=== PATIENT | female | born 1975 | race Caucasian/White ===

== ENCOUNTER → 2020-04-07 | Emergency (ER) | payer OTHER ==
[~2020-04-07] VITALS: Ht 170.2 cm; Wt 51.7 kg
[~2020-04-07] MED LIST: ATIVAN0.5 M1 PO; CARAFATE1 GM PO; ZOFRAN ODT4 MG PO; ZOLOFT25 MG PO
--- NOTE | ~2020-04-07 | EMS ---
[address] [address] EMS Patient Care Report Name: ERIK GIBSON Room #: REG SKYLER Bernal#: [id number] Admission: 04/07/20 Attend Phys: Discharge: Date of : 73 Report #: [id number] THIS REPORT FOR: //name// Report Transmitted: 04/08/2020 06:26 EMS Care Summary [facility] MED-ACT Incident [id number] @ 04/07/2020 13:59 Incident Location [address] [place] [address] Patient ERIK GIBSON Female, 45 Years 1975 Patient Address [address] [place] [address] Patient History Anxiety Disorder (Panic Attacks), Patient Allergies Penicillin allergy, Patient Medications Sertraline, Chief Complaint "My stomach hurts" Disposition Transported No Lights/Comfort Dispatch Reason Sick Person Transported To [facility] Narrative 45yof found sitting in position in bathroom, alert and oriented, tachypnic, and reporting 10/10 pain to the center of her abdomen. Pt's [address] [address] EMS Patient Care Report Name: ERIK GIBSON Room #: REG Dolores#: [id number] Admission: 04/07/20 Attend Phys: Discharge: Date of : 73 Report #: [id number] boyfriend reported that "everything was fine" and then pt "screamed and said to call 911." Pt stated she began to have a "knot" in the middle of her stomach around "noon" today when she left work to return home. Pt stated she was nauseated and had a "soft stool," but did not report any blood in bowel. Pt denied any chance of stating she no longer has her "menstrual cycle." Pt stating her pain felt like a "knot," but did not radiate out of the middle of her abdomen. Pt stated she still had her gallbladder and appendix. Pt denied any recent trauma to her abdomen. Pt requested transport to [facility] ER for further evaluation. Pt breathing was extremely rapid and it was noted that pt had the start of carpo-pedal spasms in both of her hands. Pt's breathing was continually coached with minimal success throughout EMS care. Pt was assisted down 1 small flight of stairs to awaiting cot, secured with straps, and moved to ambulance for further assessment/treatment. EKG, ETCO2, and basic vital signs were continually monitored throughout EMS care. Hospital was contacted via [employer] with pt information only. Upon arrival to ER, pt is alert and oriented, vital signs as noted, with no change in complaint/condition. Pt continued to have 10/10 pain noted to her center abdomen. Pt care was transferred to [facility] in ER RM 2 without incident. Initial Vitals @14:14P: 77,R: 50,EtCO2: 8,SpO2: 99, @14:27P: 78,R: 35,EtCO2: 14, @14:15P: 80,R: 50,EtCO2: 9,SpO2: 100, @14:26P: 74,R: 36,EtCO2: 13, @14:08P: 90,R: 50,BP: 103/65,Pain: 10/10,GCS: 15,SpO2: 100,Revised Trauma: 11, @14:28P: 77,R: 35,BP: 119/63,Pain: 10/10,EtCO2: 13,SpO2: 100, Assessments @14:06MENTAL:Person Oriented,Time Oriented,Place Oriented,Event Oriented,SKIN:HEENT:Head/Face: No Abnormalities,LUNG SOUNDS:Left Upper: Guarding,Right Upper: Guarding,Left Lower: Guarding,Right Lower: Guarding,General: No Abnormalities,ABDOMEN:Left Upper: Guarding,Right Upper: Guarding,Left Lower: Guarding,Right Lower: Guarding,General: No Abnormalities,PELVIS//GI:No Abnormalities,EXTREMITIES:Left Arm: No Abnormalities,Right Arm: No Abnormalities,Left Leg: No Abnormalities,Right Leg: No Abnormalities,PULSE:NEURO:No Abnormalities, Impression Abdominal Pain Procedures [facility] [address] [place] [address] EMS Patient Care Report Name: ERIK GIBSON CATALINA Room #: REG Dolores#: [id number] Admission: 04/07/20 Attend Phys: Discharge: Date of : 73 Report #: [id number] @14:06ALS AssessmentResponse: UnchangedSucceeded@14:07Surgical Mask on PatientResponse: Unchanged Timeline 13:57,Call Received 13:57,Psap Call 13:59,Dispatched 14:00,En Route 14:03,On Scene 14:05,At Patient 14:06,ALS Assessment,Response: UnchangedSucceeded, 14:07,Surgical Mask on Patient,Response: Unchanged 14:08,BP: 103/65 M,PULSE: 90,RR: 50 R,SPO2: 100 Ox,ETCO2: ,BG: ,PAIN: 10,GCS: 15, 14:14,BP: / M,PULSE: 77,RR: 50 R,SPO2: 99 Ox,ETCO2: 8 ,BG: ,PAIN: ,GCS: , 14:15,BP: / M,PULSE: 80,RR: 50 R,SPO2: 100 Ox,ETCO2: 9 ,BG: ,PAIN: ,GCS: , 14:18,Depart Scene 14:26,BP: / M,PULSE: 74,RR: 36 R,SPO2: Ox,ETCO2: 13 ,BG: ,PAIN: ,GCS: , 14:27,BP: / M,PULSE: 78,RR: 35 R,SPO2: Ox,ETCO2: 14 ,BG: ,PAIN: ,GCS: , 14:28,BP: 119/63 M,PULSE: 77,RR: 35 R,SPO2: 100 Ox,ETCO2: 13 ,BG: ,PAIN: 10,GCS: , 14:31,At Destination 14:48,Call Closed Disclaimer v1.1 Copyright 2020 [employer] This EMS Care Summary contains data elements from the applicable legal record (which may be displayed differently). It is designed to provide pertinent information for the following purposes: continuity of care, clinical quality, and state data reporting. The complete legal record is available to ED staff and administrators of the receiving hospital in [employer] Patient Tracker. All data is provided "as is."
[2020-04-07 15:17] LABS: ABSOLUTE NEUTROPHILS 10.3 thou/uL (1.4-8.2); BASOPHILS 0.4 % (0.0-2.0); EOSINOPHILS 0.3 % (0.0-3.0); HEMATOCRIT 41.4 % (37.0-47.0); LYMPHOCYTES 9.7 % (24.0-44.0); MCHC 33.8 g/dL (28.0-37.0); MCV 94.9 fL (80.0-100.0); MONOCYTES 2.9 % (1.0-8.0); PLATELET COUNT 332 thou/uL (150-400); POLYS 86.7 % (36.0-66.0); RBC 4.36 mil/uL (4.20-5.00); RDW 12.7 % (10.5-14.5); WBC 11.9 thou/uL (4.0-11.0)
[2020-04-07 15:22] LABS: ANION GAP 17 mmol/L (7-16); BUN 12 mg/dL (7-18); CALCIUM 9.5 mg/dL (8.5-10.1); CHLORIDE 103 mmol/L (98-107); CO2 21 mmol/L (21-32); CREATININE 0.8 mg/dL (0.6-1.0); GLUCOSE 154 mg/dL (74-106); POTASSIUM 3.6 mmol/L (3.5-5.1); SODIUM 141 mmol/L (136-145)
[2020-04-07 15:32] LABS: ALBUMIN 4.4 g/dL (3.4-5.0); DIRECT BILIRUBIN 0.1 mg/dL (<0.1-0.2); LIPASE 111 U/L (73-393); SGOT 20 U/L (15-37); SGPT 21 U/L (30-65); TOTAL BILIRUBIN 0.4 mg/dL (0.2-1.0); TOTAL PROTEIN 7.3 g/dL (6.4-8.2); TROPONIN-I <0.06 ng/mL (<0.06)
[2020-04-07 17:18] LABS: URINE BILIRUBIN NEGATIVE (Negative); URINE BLOOD NEGATIVE (Negative); URINE CLARITY CLEAR; URINE COLOR YELLOW; URINE GLUCOSE-RANDOM* NEGATIVE (Negative); URINE KETONES 1+ (Negative); URINE LEUKOCYTES-REFLEX NEGATIVE (Negative); URINE NITRITE-REFLEX NEGATIVE (Negative); URINE PROTEIN (DIPSTICK) NEGATIVE (Negative); URINE UROBILINOGEN 0.2 E.U./dl (0.2-1.0)
[2020-04-07 22:00] VITALS: BP 139/85
--- NOTE | 2020-04-08 07:34 | EKG ---
[facility] [place] [address] ELECTROCARDIOGRAM REPORT Name: ERIK GIBSON Room #: REG [facility]#: [id number] Admission: 04/07/20 Attend Phys: Discharge: Date of : 73 Report #: [id number] THIS REPORT FOR: cc: CARRI Rae family physician/PCP CARRI - Kyra family physician/PCP Jose Flores MD [facility] ~ THIS REPORT FOR: //name// [facility] ED Test Date: 2020-04-07 Test Time: 16:43:22 Pat Name: ERIK GIBSON Department: Room: Gender: F Photographic Processor: : 1975 Requested By: Elisa Kapadia Order Number: [id number] MD: Jose Flores Measurements Intervals [place] Rate: 56 P: 65 DE: 167 QRS: 63 QRSD: 82 T: 64 QT: 468 QTc: 452 Interpretive Statements Sinus rhythm Anteroseptal infarct, old Minimal ST elevation, inferior leads Baseline wander in lead(s) V4 No previous ECG available for comparison Electronically Signed On 04-08-2020 7:34:17 CDT by Jose Flores [email or web address] <ELECTRONICALLY SIGNED> By: Jose Flores MD, FACC 04/08/20 0734 1643 1643 Jose Flores MD, FAC /EPI
== END ==
LOC: ER 14:39
PROVIDERS: Emergency Medicine
DX: R10.13 Epigastric pain (principal); R47.81 Slurred speech; Z79.890 Hormone replacement therapy; Z88.0 Allergy status to penicillin; Z88.8 Allergy status to other drugs, medicaments and biological substances